=== PATIENT | female | born 1960 | race Caucasian/White ===

== ENCOUNTER 2016-04-05 07:56 | Emergency (ER) | payer OTHER ==
[2016-04-05] MEDS ORDERED: ACETAMINOPHEN 500 MG TABLET PO ONE (09:12)
[2016-04-05 09:16] VITALS: BP 146/80
[2016-04-05] MEDS ORDERED: KETOROLAC TROMETHAMINE 60 MG/2 ML VIAL IM ONE ×2 (09:31→09:32)
--- NOTE | 2016-04-05 10:03 | ERNOTE ---
Lower Extremity HPI - Narrative Date of Service: 04/05/16 - General Time Seen by Provider: 04/05/16 09:31 Source: patient Exam Limitations: no limitations - Immun/Allergies/Home Medications Immunizations: IMMUNIZATION HX History of Influenza Vaccine Yes Hx Pneumococcal Vaccination Yes Allergies/Adverse Reactions: Allergies Allergy/AdvReac Type Severity Reaction Status Date / Time No Known Allergies Allergy Verified 04/05/16 08:22 Home Medications: HOME MEDICATIONS Aspirin [Aspirin Chewable] 81 mg PO DAILY 04/05/16 [Last Taken Unknown] Gabapentin [Gralise] 300 mg PO TID 04/05/16 [Last Taken Unknown] Lisinopril [Zestril] 10 mg PO DAILY 04/05/16 [Last Taken Unknown] Meloxicam 7.5 mg PO DAILY #7 tablet 04/05/16 [Last Taken Unknown] Metformin HCl [Glumetza] 500 mg PO BID 04/05/16 [Last Taken Unknown] Ranitidine HCl [Zantac] 150 mg PO TID 04/05/16 [Last Taken Unknown] Simvastatin 10 mg PO DAILY 04/05/16 [Last Taken Unknown] Tramadol HCl [Tramadol HCl ER] 150 mg PO HS 04/05/16 [Last Taken Unknown] traMADol HCL [Ultram] 50 mg PO Q6H PRN #20 tablet 04/05/16 [Last Taken Unknown] - History of Present Illness Narrative: Patient presents with right heel pain that's been going on for about a week. Sudden onset she denies any injury. She is able to bear weight but there is considerable amount pain. Denies any abdominal pain chest pain headache. Pain is located within the heel. Worse with movements and bearing weight denies any radiation. No calf pain no other joint pain. Date (Duration): 03/29/16 Method of Injury: Reports: unknown Associated Symptoms: Reports: none. Denies: unable to bear weight, dizzy/light headedness, headache, weakness, sensory loss, chest pain, vomiting/diarrhea, bowel/bladder problems Other Injuries: Reports: none Review of Systems - Review of Systems Constitutional: Absent: fever Respiratory: Absent: shortness of breath, cough All Other Systems: All systems neg except as marked - Patient's Past Medical History Patient History - Medical: Arthritis, Diabetes Type 2, Fibromyalgia, Other Patient History - Cardiac/Respiratory: Hypertension, Hyperlipidemia Patient History - Cancer: Colon, Cervical Patient History - Other: None - Social History Living Situations: home Alcohol Use: none Drug Use: none - Immunizations Hx Pneumococcal Vaccination: Yes History of Influenza Vaccine: Yes Physical Exam - Physical Exam General Appearance: Present: wd/wn, alert, no apparent distress Neck: Present: normal inspection Respiratory: Present: no respiratory distress Extremity Exam: Present: normal inspection, no edema, other - tenderness on the right heel, worse with extension and flexion. No deformity not red or hot to touch. No tenderness at the medial and lateral malleolus tenderness other muscular full examination unremarkable good capillary refills distal neurovascular intact ED Progress - Vital Signs Patient's Vital Signs:: I have reviewed the patient's vital signs. Vital Signs: Vital Signs 04/05/16 04/05/16 08:13 09:16 Temperature 35.9 C L Pulse Rate 81 82 Respiratory 12 12 Rate Blood Pressure 133/89 146/80 O2 Sat by Pulse 98 98 Oximetry - X-Ray X-Ray #1 X-Ray: foot Interpretation: Reviewed by me - I foot x-ray does not show any acute abnormality - Progress/Reassessment Chief Complaint: Foot Injury/Pain Progress:: Unchanged - Transfer of Care Expected Disposition: Discharge Departure Clinical Impression: Heel pain Qualifiers: Laterality: right Qualified Code(s): M79.671 - Pain in right foot - Departure Disposition: Home self-care Condition: Stable Instructions: Heel Spur, Plantar Fasciitis, Form - Excuse from Work, School, or Physical Activity Additional Instructions: Medication as prescribed and follow-up with podiatry medicine in 2-3 days the leg elevated return back to the ER with any change or worsening symptoms Referrals: Margarita Gomes DPM [Staff Physician] - Prescriptions: Meloxicam 7.5 mg PO DAILY #7 tablet traMADol HCL [Ultram] 50 mg PO Q6H PRN #20 tablet PRN Reason: Pain
== END 2016-04-05 10:03 | disposition home or self-care (01) ==
LOC: ER 07:56
DX: M79.671 Pain in right foot (principal); E11.9 Type 2 diabetes mellitus without complications; M19.90 Unspecified osteoarthritis, unspecified site; M79.7 Fibromyalgia

== ENCOUNTER 2016-06-15 09:24 | Emergency (ER) | payer OTHER ==
[2016-06-15 09:41] VITALS: BP 166/106
--- NOTE | 2016-06-15 10:04 | ERNOTE ---
Upper Extremity HPI - General Extremities Pain Location: other: left - left sided neck pain and spasm Time Seen by Provider: 06/15/16 09:48 Source: patient Exam Limitations: no limitations - Immun/Allergies/Home Medications Immunizations: IMMUNIZATION HX History of Influenza Vaccine Yes Hx Pneumococcal Vaccination Yes Allergies/Adverse Reactions: Allergies Allergy/AdvReac Type Severity Reaction Status Date / Time No Known Allergies Allergy Verified 06/15/16 09:43 Home Medications: HOME MEDICATIONS Gabapentin [Gralise] 300 mg PO TID 04/05/16 [Last Taken Unknown] Meloxicam 7.5 mg PO DAILY #7 tablet 04/05/16 [Last Taken Unknown] Ranitidine HCl [Zantac] 150 mg PO TID 04/05/16 [Last Taken Unknown] metFORMIN HCL [Glumetza] 500 mg PO BID 04/05/16 [Last Taken Unknown] traMADol HCL [Ultram] 50 mg PO Q6H PRN #20 tablet 04/05/16 [Last Taken Unknown] Cyclobenzaprine HCl [Flexeril] 10 mg PO TID PRN #30 tab 06/15/16 [Last Taken Unknown] Nortriptyline HCl [Pamelor] 25 mg PO HS 06/15/16 [Last Taken Unknown] - History of Present Illness Narrative: Patient complains of left-sided neck pain spasm. Onset of symptoms was approximately 2 days ago. She states that the pain is moderate in intensity. Severity: moderate Method of Injury: Reports: unknown Other Injuries: Reports: none Review of Systems - Review of Systems Constitutional: Present: See HPI EYE: Present: no symptoms reported ENT: Present: no symptoms reported Respiratory: Present: no symptoms reported Cardiology: Present: no symptoms reported Gastrointestinal/Abdominal: Present: no symptoms reported Genitourinary: Present: no symptoms reported Musculoskeletal: Present: muscle pain, muscle stiffness, neck pain, other - spasm Skin: Present: no symptoms reported Neurological: Present: no symptoms reported Endocrine: Present: no symptoms reported Hematologic/Lymphatic: Present: no symptoms reported Psych: Present: no symptoms reported - Patient's Past Medical History Patient History - Medical: Arthritis, Diabetes Type 2, Fibromyalgia, Other Patient History - Cardiac/Respiratory: Hypertension, Hyperlipidemia Patient History - Cancer: Colon, Cervical Patient History - Other: None - Family History Mother Family History - Medical: Diabetes Type 2, Hypothyroidism Family History - Cardiac/Respiratory: COPD Father Family History - Medical: Arthritis Family History - Cardiac/Respiratory: Coronary Heart Disease Family History - Cancer: Bone, Colon, Lung - Social History Living Situations: home Abuse History: No History of abuse Psych History: No pertinent hx Smoking Status: Never smoker Have you smoked in the past 12 months: No Do you dip or chew tobacco: No Alcohol Use: rarely Drug Use: none - Immunizations Hx Pneumococcal Vaccination: Yes History of Influenza Vaccine: Yes Physical Exam - Physical Exam General Appearance: Present: wd/wn, alert, moderate distress Eye Exam: Normal inspection: bilateral, PERRL: bilateral Ears, Nose, Throat: Present: normal ENT inspection, H, normal pharynx Neck: Present: limited range of motion, other - left lateral muscle spasm Respiratory: Present: no respiratory distress, normal breath sounds, no accessory muscle use, chest nontender, lungs clear Cardiovascular/Chest: Present: regular rate, rhythm, no murmur, normal peripheral pulses Gastrointestinal/Abdominal: Present: normal bowel sounds, nontender, nondistended, soft, no organomegaly Rectal Exam: Present: deferred Back Exam: Present: normal inspection, normal range of motion Extremity Exam: Present: normal inspection, non-tender, no edema, normal range of motion Neurological Exam: Present: alert, oriented, normal mood/affect Skin Exam: Present: normal color, warm/dry Lymphatic Exam: Present: no adenopathy ED Progress - Vital Signs Patient's Vital Signs:: I have reviewed the patient's vital signs. Vital Signs: Vital Signs 06/15/16 09:34 Temperature 36.2 C L Pulse Rate 82 Respiratory 14 Rate Blood Pressure 166/106 O2 Sat by Pulse 96 Oximetry - Progress/Reassessment Chief Complaint: Upper Extremity Injury/Problem Plan - Plan Plan: Patient appears to have torticollis. Pt is on Meloxicam 7.5 and we'll have her increase that to 15 mg a day. Will also add Flexeril to the mix and we will have her increase her tramadol 50 to 100 mg every 6 hours. Departure Clinical Impression: Torticollis, acute - Departure Disposition: Home self-care Condition: Good Instructions: Acute Torticollis Additional Instructions: 1. Increase your Meloxicam to 15 mg a day 2. Increase your Tramadol to 100 mg every 6 hours for the next 5 days Prescriptions: Cyclobenzaprine HCl [Flexeril] 10 mg PO TID PRN #30 tab PRN Reason: MUSCLE SPASMS
--- OUTSIDE RECORDS SUMMARY | 2016-06-15 10:24 | XMS REPORT | Continuity of Care Document ---
:1960 Author Organization [place] [address] Care Team Providers Name Role Phone Provider, None Per Patient Primary Care Provider Unavailable Source Comments This disclosure is being made pursuant to the [employer] program and maynot contain all information available regarding this patient.[facility] Active Allergies and Adverse Reactions Not on File Current Medications Be aware that medications may not be up to date as of this document. Alwaysverify current medications with the patient. Not on file Active Problems Not on file Social History Tobacco Use Types Packs/Day Years Used Date Never Assessed Plan of Care Health Maintenance Due Date Last Done Comments Lab-Lipids 1960 Eye (Ophthalmology) Exam 1970 Foot Exam 1970 Retired-Pertussis Vaccine Adult 06/17/1979 Retired-Tetanus Vaccine Adult 06/17/1979 Pap Smear 1981 Mammogram 2000 Colonoscopy 2010 Well Adult Visit 2010 LAB-HgA1C 01/27/2014 07/27/2013 Retired-INFLUENZA VACCINE 11/05/2014 Results from Last 3 Months Not on file
--- OUTSIDE RECORDS SUMMARY | 2016-06-15 10:24 | XMS REPORT | Continuity of Care Document ---
:1960 Author Organization [facility] ([facility]) Address [address] [place] [address] Phone [phone] Care Team Providers Name Role Phone Sandoval Watters Primary Care Provider [phone] Source Comments This disclosure is being made pursuant to the Care Everywhere program, applicable federal and state laws, and may not contain all informaitonavailable regarding this patient.[facility] ([facility]) Active Allergies and Adverse Reactions No Known Allergies Current Medications Prescription Sig. Disp. Refills Start Date End Date Status lancets As directed. 100 Each 11 08/23/2011 Active Indications: DIABETES MELLITUS blood glucose by In Vitro route 2 1 Each 0 08/23/2011 Active (FREESTYLE FREEDOM times daily. LITE) meter Indications: DIABETES MELLITUS SUPPLY blood glucose As directed. 150 Strip 11 04/19/2012 Active test strips Indications: DIABETES MELLITUS cyclobenzaprine 10 Take 1 Tab by mouth 3 90 Tab 0 03/20/2013 Active mg tablet times daily as needed. Indications: FIBROMYALGIA traMADol 50 mg Take 1-2 Tabs by 180 Tab 0 03/20/2013 Active tablet mouth 4 times daily as needed. Indications: FIBROMYALGIA lisinopril 10 mg Take 1 Tab by mouth 60 Tab 0 03/20/2013 Active tablet daily. Indications: HYPERTENSION ranitidine 150 mg Take 1 Tab by mouth 2 60 Tab 0 03/20/2013 Active tablet times daily. Indications: GASTROESOPHAGEAL REFLUX aspirin 81 mg EC Take 81 mg by mouth Active tablet daily acetaminophen 500 mg Take 1,000 mg by Active tablet mouth every 6 hours as needed Pt takes 4 500 mg at a time BID metFORMIN Take 500 mg by mouth 04/28/2015 Active (GLUCOPHAGE XR) 500 daily. mg XR tablet lovaSTATIN 20 mg Take 20 mg by mouth 06/30/2015 Active tablet daily. DULoxetine Take 30 mg by mouth 04/28/2015 Active (CYMBALTA) 30 mg XR daily as needed. capsule nortriptyline 25 mg Take 1 capsule (25 mg 30 capsule 5 12/17/2015 Active capsule total) by mouth at bedtime. Active Problems Problem Noted Date Diarrhea of presumed infectious origin 12/17/2015 H/O colon cancer, stage I 04/19/2012 Hyperopia with presbyopia 11/24/2011 Diabetes mellitus type 2 in obese 08/23/2011 Hypertension 08/23/2011 HLD (hyperlipidemia) 08/23/2011 Personal history of colon cancer 08/23/2011 Fibromyalgia 08/23/2011 Osteoarthritis 08/23/2011 Obesity 08/23/2011 Healthcare maintenance 08/23/2011 Abdominal pain, periumbilical 08/23/2011 History of cervical cancer 08/23/2011 Urinary tract infection 08/18/2011 Most Recent Encounters Date Type Specialty Providers Description 03/24/2016 Office Visit Med GI/Hepatology Tabatha Doe MD Subj: Appointment Canceled Immunizations Name Dates Previously Given Next Due Influenza, PF 12/23/2011 Pneumococcal Polysaccharide, PPSV23 (Pneumovax 23) 08/23/2011 Tdap 08/23/2011 Social History Tobacco Use Types Packs/Day Years Used Date Never Smoker Smokeless Tobacco: Never Used Tobacco Cessation:Counseling Given: Yes Comments: Alcohol Use Drinks/Week oz/Week Comments Yes occasional Last Filed Vital Signs Vital Sign Reading Time Taken Blood Pressure 147/85 12/17/2015 9:57 AM CDT Pulse 83 12/17/2015 9:57 AM CDT Temperature 36.5 C (97.7 F) 12/17/2015 9:55 AM CDT Respiratory Rate 18 03/19/2015 11: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 Height 1.651 m (5' 5") 12/17/2015 9:55 AM CDT Weight 111.8 kg (246 lb 7.6 oz) 12/17/2015 9:55 AM CDT Body Mass Index 41.02 12/17/2015 9:55 AM CDT Oxygen Saturation 93% 03/19/2015 11: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 Plan of Care Patient Goal Type Goal Diet Eat more fruits and vegetables Weight Weight below 91 kg (200 lb) Health Maintenance Due Date Last Done Comments HCV Screening 1960 Hepatitis B Vaccine (1 of 3 - 1960 Primary Series) MMR Vaccine 1978 FOBT Colon Cancer Screening 2010 Sigmoidoscopy Colon Cancer 2010 Screening DIABETIC: Foot Exam 08/22/2012 08/23/2011, 08/23/2011 DIABETIC: Microalbumin 08/22/2012 08/23/2011 Pneumococcal Vaccine (2 of 3 08/22/2012 08/23/2011 - PCV13) DIABETIC: Retinal Eye Exam 11/23/2012 11/24/2011, Additional history exists 11/24/2011, 11/24/2011 DIABETIC: Cholesterol 12/22/2012 12/23/2011, 08/23/2011 Diabetic: Hdl 12/22/2012 12/23/2011, 08/23/2011 Diabetic: Ldl 12/22/2012 12/23/2011, 08/23/2011 DIABETIC: Triglycerides 12/22/2012 12/23/2011, 08/23/2011 Mammogram 12/22/2012 12/23/2011, 08/22/2006 DIABETIC: Hemoglobin A1C 06/18/2013 12/18/2012, Additional history exists 04/28/2012, 12/23/2011 Influenza Vaccine: Seasonal 10/06/2015 12/23/2011 (#1) Cervical Cancer Screening 02/02/2017 02/03/2012, Additional history exists 09/30/2000, 05/27/2000 Td Vaccine 08/22/2021 08/23/2011 Colonoscopy 01/17/2023 01/17/2013, 04/04/2012, 11/22/2010 Tdap Vaccine Completed 08/23/2011 Results from Last 3 Months Not on file
== END 2016-06-15 10:23 | disposition home or self-care (01) ==
LOC: ER 09:24
DX: M43.6 Torticollis (principal); M19.90 Unspecified osteoarthritis, unspecified site; E11.9 Type 2 diabetes mellitus without complications; M79.7 Fibromyalgia